=== PATIENT | male | born 1985 | race Two or more races ===

== ENCOUNTER 2023-11-17 08:01 | Inpatient (IN) | payer OTHER ==
[~2023-11-17] VITALS: Ht 157.5 cm; Wt 72.6 kg
[~2023-11-17 08:01] MED LIST: KETO10TA2 PO; LEVAQUIN500 MG PO; METFORMIN HCL500 MG; METFORMIN HCL500 MG PO; ORPH100T PO; VOLTAREM 50 MG PO
[2023-11-17] MEDS ORDERED: JARDIANCE10 MG PO (08:24)
[2023-11-17] MEDS ORDERED: PEPCID AC20 MG PO (08:25)
[2023-11-17] MEDS ORDERED: TOPROL XL50 M1 PO (08:25)
[2023-11-17] MEDS ORDERED: JENTADUETO XR1 EACH PO (08:25)
[2023-11-17] MEDS ORDERED: LIPITOR20 MG PO (08:25)
[2023-11-17] MEDS ORDERED: 0.9 % SODIUM CHLORIDE 1,000 ML IV SCH ×2 (09:00→18:00)
[2023-11-17 09:49] LABS: HEMATOCRIT 27.8 % (39.0-48.0); MEAN CORPUSCULAR HGB CONC 31.2 g/dl (32.0-36.0); PLATELET COUNT 583 K/uL (150-450); RED BLOOD COUNT 4.05 M/uL (4.00-6.00)
[2023-11-17 09:50] LABS: HEMOGLOBIN 8.7 g/dL (13-16.00); MEAN CELL VOLUME 68.7 fL (80.0-100.00); MEAN CORPUSCULAR HEMOGLOBIN 21.4 pg (27.00-32.0); RED CELL DISTRIBUTION WIDTH 18.5 % (11.5-14.5)
[2023-11-17 09:55] LABS: PH,URINE 6.5 (5.0-8.0); URINE APPEARANCE Turbid; URINE BILIRRUBIN Negative (NEGATIVE); URINE BLOOD Small; URINE COLOR Yellow; URINE KETONE Negative (NEGATIVE); URINE LEUKOCYTE Large; URINE NITRATE Negative; URINE PROTEIN Trace (NEGATIVE); URINE UROBILINOGEN 0.2 E.U./dl
[2023-11-17 09:58] LABS: URINE WBC 5038.8 uL (0.0-23.2)
[2023-11-17 09:59] LABS: URINE BACTERIA > 9821.5 uL (0.0-1933); URINE CAST 1.22 uL (0.0-1.40); URINE GLUCOSE >=1000 MG/DL (NEGATIVE)
[2023-11-17 10:17] LABS: CALCIUM 9.3 mg/dL (8.5-10.1); CREATININE SERUM 0.94 mg/dL (0.70-1.30); GFR 88.88; POTASSIUM 4.3 mEq/L (3.5-5.1)
[2023-11-17] MEDS ORDERED: ACETAMINOPHEN 500 MG GEL..CAP PO PRN (18:00)
[2023-11-17] MEDS ORDERED: VANCOMYCIN HCL 1,000 MG VIAL IV SCH (18:03)
[2023-11-17] MEDS ORDERED: CEFEPIME HCL 2,000 MG in 0.9 % SODIUM CHLORIDE 100 ML IV SCH (18:05)
[2023-11-17] MEDS ORDERED: INSULIN LISPRO 1,000 UNIT/10 ML UNITS SUBCUTANEO PRN (18:15)
[2023-11-17] MEDS ORDERED: DEXTROSE 50 % IN WATER 0.5 G/ML DISP.SYRIN IV PRN (18:15)
[2023-11-17 19:34] VITALS: BP 101/68
[2023-11-17 19:43] LABS: INR 1.12; PROTHROMBIN TIME 12.1 SECONDS (9.0-11.5)
[2023-11-17 19:44] LABS: PARTIAL THROMBOPLASTIN TIME 41.6 SECONDS (22.0-34.0)
[2023-11-17 21:07] VITALS: BP 127/82; O2SAT 96
[2023-11-18 01:14] VITALS: BP 110/73; O2SAT 99
[2023-11-18 08:00] VITALS: BP 108/66; O2SAT 100
[2023-11-18] MEDS ORDERED: FAMOTIDINE/PF 20 MG in 0.9 % SODIUM CHLORIDE 8 ML IV PUSH SCH (09:00)
[2023-11-18] MEDS ORDERED: ATORVASTATIN CALCIUM 20 MG TABLET PO SCH (09:00)
[2023-11-18] MEDS ORDERED: ENOXAPARIN SODIUM 40 MG/0.4 ML SYRINGE SUBCUTANEO SCH (09:00)
[2023-11-18] MEDS ORDERED: METOPROLOL SUCCINATE 50 MG TAB.SR.24H PO SCH (09:00)
[2023-11-18 16:00] VITALS: BP 111/61; O2SAT 100
[2023-11-18] MEDS ORDERED: METROnidazole 500 MG TABLET PO SCH (17:00)
[2023-11-18] MEDS ORDERED: LACTOBACILLUS ACIDOPHILUS 1 CAP CAP PO SCH (17:00)
[2023-11-18 20:09] LABS: HEMATOCRIT 33.8 % (39.0-48.0); HEMOGLOBIN 10.9 g/dL (13-16.00); MEAN CELL VOLUME 73.9 fL (80.0-100.00); MEAN CORPUSCULAR HEMOGLOBIN 23.9 pg (27.00-32.0); MEAN CORPUSCULAR HGB CONC 32.3 g/dl (32.0-36.0); PLATELET COUNT 543 K/uL (150-450); RED BLOOD COUNT 4.57 M/uL (4.00-6.00)
[2023-11-18 20:10] LABS: RED CELL DISTRIBUTION WIDTH 23.6 % (11.5-14.5)
[2023-11-18 20:51] LABS: CALCIUM 8.9 mg/dL (8.5-10.1); CREATININE SERUM 1.22 mg/dL (0.70-1.30); GFR 65.79; POTASSIUM 4.91 mEq/L (3.5-5.1)
[2023-11-18] MEDS ORDERED: VANCOMYCIN HCL 1,000 MG VIAL IV SCH (21:00)
[2023-11-19 01:29] VITALS: BP 117/79; O2SAT 99
[2023-11-19 08:00] VITALS: BP 102/63; O2SAT 96
[2023-11-19] MEDS ORDERED: CHLORHEXIDINE GLUCONATE 120 ML BOTTLE TOP SCH (09:00)
[2023-11-19] MEDS ORDERED: INSULIN NPH HUM/REG INSULIN HM 1,000 UNIT/10 ML UNITS SUBCUTANEO STA (09:39)
[2023-11-19] MEDS ORDERED: TRAMADOL HCL 50 MG TABLET PO PRN (12:15)
[2023-11-19 16:21] VITALS: BP 114/77; O2SAT 100
[2023-11-19] MEDS ORDERED: MUPIROCIN 22 GM OINT..GM TUBE NASAL SCH (17:00)
[2023-11-19] MEDS ORDERED: MEROPENEM 500 MG/VIAL VIAL IV SCH (18:00)
[2023-11-20 00:57] VITALS: BP 133/74; O2SAT 98
[2023-11-20] MEDS ORDERED: INSULIN NPH HUM/REG INSULIN HM 1,000 UNIT/10 ML UNITS SUBCUTANEO SCH (08:00)
[2023-11-20 08:15] VITALS: BP 105/70; O2SAT 97
[2023-11-20 17:00] VITALS: BP 108/70; O2SAT 99
[2023-11-21 00:51] VITALS: BP 108/71; O2SAT 100
[2023-11-21 08:00] VITALS: BP 126/73; O2SAT 100
[2023-11-21 16:00] VITALS: BP 116/78; O2SAT 100
[2023-11-22 00:41] VITALS: BP 107/70; O2SAT 98
[2023-11-22] MEDS ORDERED: BUTALB/ACETAMINOPHEN/CAFFEINE 1 TAB TABLET PO STA (06:17)
[2023-11-22 06:52] LABS: HEMATOCRIT 34.9 % (39.0-48.0); HEMOGLOBIN 11.4 g/dL (13-16.00); MEAN CELL VOLUME 75.2 fL (80.0-100.00); MEAN CORPUSCULAR HEMOGLOBIN 24.6 pg (27.00-32.0); MEAN CORPUSCULAR HGB CONC 32.7 g/dl (32.0-36.0); PLATELET COUNT 505 K/uL (150-450); RED BLOOD COUNT 4.64 M/uL (4.00-6.00); RED CELL DISTRIBUTION WIDTH 24.6 % (11.5-14.5)
[2023-11-22 07:10] LABS: ERYTHROCYTE SEDIMENTATION RATE 79 mm/hr
[2023-11-22 07:19] LABS: ALBUMIN 2.6 gm/dL (3.4-5.0); BILIRUBIN TOTAL 0.37 mg/dL (0.3-1.2); CALCIUM 8.8 mg/dL (8.5-10.1); CREATININE SERUM 0.63 mg/dL (0.70-1.30); GFR 141.05; GLOBULINA 4.5 G/DL (2.4-3.5); POTASSIUM 4.69 mEq/L (3.5-5.1); TOTAL PROTEIN 7.1 gm/dL (6.4-8.2)
[2023-11-22 07:20] LABS: C-REACTIVE PROTEIN 2.18 MG/DL (0.00-0.29)
[2023-11-22 08:00] VITALS: BP 135/84; O2SAT 99
[2023-11-22] MEDS ORDERED: INSULIN NPH HUM/REG INSULIN HM 1,000 UNIT/10 ML UNITS SUBCUTANEO SCH (08:00)
[2023-11-22 16:00] VITALS: BP 126/80; O2SAT 99
[2023-11-22] MEDS ORDERED: FAMOtidine 20 MG TABLET PO SCH (21:00)
[2023-11-22] MEDS ORDERED: FAMOTIDINE/PF 20 MG in 0.9 % SODIUM CHLORIDE 8 ML IV PUSH SCH (21:00)
[2023-11-23 00:47] VITALS: BP 127/71; O2SAT 98
[2023-11-23 10:23] VITALS: BP 148/86; O2SAT 99
[2023-11-23 13:05] LABS: URINE BACTERIA 49.1 uL (0.0-1933); URINE EPITHELIAL CELLS 7.7 uL (0.0-38.8); URINE RBC 38.3 uL (0.0-20.8); URINE WBC 92.4 uL (0.0-23.2)
[2023-11-23 13:53] LABS: URINE APPEARANCE Clear; URINE BILIRRUBIN Negative (NEGATIVE); URINE BLOOD NHT; URINE COLOR Yellow; URINE KETONE Negative (NEGATIVE); URINE LEUKOCYTE Small; URINE NITRATE Negative; URINE PROTEIN Trace (NEGATIVE)
[2023-11-23 14:22] LABS: URINE CAST 0.61 uL (0.0-1.40); URINE GLUCOSE 500 MG/DL (NEGATIVE)
[2023-11-23 17:24] VITALS: BP 128/78; O2SAT 100
[2023-11-23] MEDS ORDERED: BUTALB/ACETAMINOPHEN/CAFFEINE 1 TAB TABLET PO PRN (19:30)
[2023-11-24 00:53] VITALS: BP 130/83; O2SAT 99
[2023-11-24 08:00] VITALS: BP 135/80; O2SAT 100
[2023-11-24 16:00] VITALS: BP 123/80; O2SAT 99
[2023-11-25 01:32] VITALS: BP 143/84; O2SAT 100
[2023-11-25 08:00] VITALS: BP 110/72; O2SAT 100
[2023-11-25] MEDS ORDERED: TOPROL XL50 M1 PO (16:04)
[2023-11-25] MEDS ORDERED: FAMOTIDINE20 MG PO (16:04)
[2023-11-25] MEDS ORDERED: INTESTINEX680 M1 PO (16:04)
[2023-11-25] MEDS ORDERED: LIPITOR20 MG PO (16:04)
== END 2023-11-25 16:44 | disposition home or self-care (01) | DRG 853 ==
LOC: ER 08:03 → SEC-K 18:56 → MEDJ 18:56 → SURH 18:56 → SEC-K 19:42 → SURH 20:15
PROVIDERS: Emergency Medicine; General Practice; Internal Medicine Infectious Disease; ADMIT Internal Medicine; ATTEND Internal Medicine
PROC: 0JB90ZX Excision of Buttock Subcutaneous Tissue and Fascia, Open Approach, Diagnostic (ICD-10-PCS; 2023-11-18)
PROC: 30233N1 Transfusion of Nonautologous Red Blood Cells into Peripheral Vein, Percutaneous Approach (ICD-10-PCS; 2023-11-18)
PROC: 0JD90ZZ Extraction of Buttock Subcutaneous Tissue and Fascia, Open Approach (ICD-10-PCS; principal; 2023-11-24)
DX: A41.9 Sepsis, unspecified organism (principal); L89.314 Pressure ulcer of right buttock, stage 4; N39.0 Urinary tract infection, site not specified; N17.9 Acute kidney failure, unspecified; G82.20 Paraplegia, unspecified; Z16.12 Extended spectrum beta lactamase (ESBL) resistance; M86.18 Other acute osteomyelitis, other site; L08.9 Local infection of the skin and subcutaneous tissue, unspecified; B96.20 Unspecified Escherichia coli [E. coli] as the cause of diseases classified elsewhere; B95.61 Methicillin susceptible Staphylococcus aureus infection as the cause of diseases classified elsewhere; B96.89 Other specified bacterial agents as the cause of diseases classified elsewhere; D63.1 Anemia in chronic kidney disease; Z74.01 Bed confinement status; E78.5 Hyperlipidemia, unspecified; E11.65 Type 2 diabetes mellitus with hyperglycemia; Z79.4 Long term (current) use of insulin; N31.2 Flaccid neuropathic bladder, not elsewhere classified; I12.9 Hypertensive chronic kidney disease with stage 1 through stage 4 chronic kidney disease, or unspecified chronic kidney disease; E11.22 Type 2 diabetes mellitus with diabetic chronic kidney disease; N18.9 Chronic kidney disease, unspecified; K21.9 Gastro-esophageal reflux disease without esophagitis

== ENCOUNTER 2024-02-21 18:49 | Emergency (ER) | payer OTHER ==
[~2024-02-21] VITALS: Ht 157.5 cm; Wt 62.6 kg
[~2024-02-21 18:49] MED LIST changes: +FAMOTIDINE20 MG PO; +INTESTINEX680 M1 PO; +JARDIANCE10 MG PO; +JENTADUETO XR1 EACH PO; +LIPITOR20 MG PO; +PEPCID AC20 MG PO; +TOPROL XL50 M1 PO
[2024-02-21] MEDS ORDERED: CLINDAMYCIN PHOSPHATE 150 MG/ML (300mg) ONE (19:23)
[2024-02-21] MEDS ORDERED: 0.9 % SODIUM CHLORIDE 1,000 ML IV SCH (19:30)
[2024-02-21] MEDS ORDERED: CLINDAMYCIN PHOSPHATE 150 MG/ML (300mg) IV ONE (19:30)
[2024-02-21 19:47] LABS: HEMATOCRIT 34.3 % (39.0-48.0); HEMOGLOBIN 11.2 g/dL (13-16.00); MEAN CORPUSCULAR HEMOGLOBIN 24.9 pg (27.00-32.0); MEAN CORPUSCULAR HGB CONC 32.8 g/dl (32.0-36.0); PLATELET COUNT 566 K/uL (150-450); RED BLOOD COUNT 4.51 M/uL (4.00-6.00); RED CELL DISTRIBUTION WIDTH 20.1 % (11.5-14.5)
[2024-02-21 20:05] LABS: CALCIUM 9.8 mg/dL (8.5-10.1); CREATININE SERUM 0.73 mg/dL (0.70-1.30); POTASSIUM 4.11 mEq/L (3.5-5.1)
[2024-02-21 22:08] LABS: PH,URINE 6.5 (5.0-8.0); URINE APPEARANCE Cloudy; URINE BILIRRUBIN Negative (NEGATIVE); URINE BLOOD Negative; URINE COLOR Yellow; URINE GLUCOSE Negative (NEGATIVE); URINE KETONE Negative (NEGATIVE); URINE LEUKOCYTE Large; URINE NITRATE Positive; URINE PROTEIN Negative (NEGATIVE); URINE UROBILINOGEN 0.2 E.U./dl
[2024-02-21 22:12] LABS: URINE EPITHELIAL CELLS 21.6 uL (0.0-38.8); URINE RBC 6.7 uL (0.0-20.8); URINE WBC 107.5 uL (0.0-23.2)
[2024-02-21 22:25] LABS: URINE BACTERIA > 9821.5 uL (0.0-1933); URINE CAST 1.17 uL (0.0-1.40); URINE MUCUS SCANT
[2024-02-22] MEDS ORDERED: CLINDAMYCIN PHOSPHATE 150 MG/ML (300mg) ONE ×3 (00:55→16:38)
[2024-02-22] MEDS ORDERED: CLINDAMYCIN PHOSPHATE 300 MG in 0.9 % SODIUM CHLORIDE 50 ML IV SCH (01:00)
[2024-02-22] MEDS ORDERED: CLINDAMYCIN PHOSPHATE 150 MG/ML (900mg) ONE (16:47)
[2024-02-22] MEDS ORDERED: CLINDAMYCIN PHOSPHATE 900 MG in 0.9 % SODIUM CHLORIDE 100 ML IV SCH (17:00)
[2024-02-23] MEDS ORDERED: CLINDAMYCIN PHOSPHATE 150 MG/ML (900mg) ONE (00:44)
[2024-02-23 08:27] LABS: HEMATOCRIT 36.3 % (39.0-48.0); HEMOGLOBIN 11.5 g/dL (13-16.00); MEAN CELL VOLUME 78.1 fL (80.0-100.00); MEAN CORPUSCULAR HEMOGLOBIN 24.7 pg (27.00-32.0); MEAN CORPUSCULAR HGB CONC 31.7 g/dl (32.0-36.0); PLATELET COUNT 465 K/uL (150-450); RED BLOOD COUNT 4.65 M/uL (4.00-6.00); RED CELL DISTRIBUTION WIDTH 20.3 % (11.5-14.5)
[2024-02-23 08:47] LABS: CALCIUM 9.6 mg/dL (8.5-10.1); CREATININE SERUM 0.61 mg/dL (0.70-1.30); GFR 146.4; POTASSIUM 4.53 mEq/L (3.5-5.1)
[2024-02-23] MEDS ORDERED: CLINDAMYCIN PHOSPHATE 150 MG/ML (300mg) ONE (08:57)
== END 2024-02-23 12:23 | disposition designated cancer center or children's hospital (05) ==
LOC: ER 18:49
PROVIDERS: Emergency Medicine; General Practice
DX: Z94.5 Skin transplant status (principal); G82.20 Paraplegia, unspecified; L89.314 Pressure ulcer of right buttock, stage 4; N39.0 Urinary tract infection, site not specified
CPT/HCPCS: 36415; 96365; 96366; 99285; J3490 ×2; J7030